=== PATIENT | female | born 1965 | race Caucasian/White ===

== ENCOUNTER 2024-12-27 20:40 | Emergency (ER) | payer BC, SELFPAY ==
[2024-12-27 21:09] VITALS: BP 116/78
[2024-12-27 21:50] LABS: % Basophils 0.5 % (0-2); % Lymphocytes 26.9 % (20.5-51.1); % Monocytes 19.9 % (1.7-9.3); % Neutrophils 50.7 % (42.2-75.2); Absolute Lymphocytes 0.5 10^3/uL (1.2-3.4); Absolute Monocytes 0.4 10^3/uL (0.1-0.6); Hemoglobin 12.2 g/dL (12.0-16.0); Mean Corp Hgb Conc. 33.9 g/dL (33.0-37.0); Mean Corpuscular Hgb 32.2 pg (27.0-31.0); Mean Platelet Volume 10.6 fL (7.4-10.4); Nucleated Red Blood Cells % 0 %; Platelet Count 111 10^3/uL (130-400); Red Blood Cell Count 3.79 10^6/uL (4.20-5.40); Red Cell Dist. Width 12.2 % (11.5-14.5)
[2024-12-27 21:55] LABS: Blood Urea Nitrogen 16 mg/dl (7-17); Calcium 8.9 mg/dl (8.4-10.2); Carbon Dioxide 28 mmol/L (22-30); Chloride 101 mmol/L (98-107); Glucose 102 mg/dl (70-99); Potassium 4.4 mmol/L (3.5-5.1); Sodium 134 mmol/L (135-145); eGFR > 60.00
[2024-12-27 22:55] VITALS: BMI 26.3
--- NOTE | 2024-12-27 23:14 | ED.GENMED ---
History of Present Illness
General
Chief Complaint: Cough
Source: patient and spouse
Exam Limitations: none
Time Seen by Provider: 12/27/24 22:52
Nursing documentation reviewed up to this point in time: agreed with
History of Present Illness
History of Present Illness:
This is a 59-year-old woman who has history of lupus maintained on Plaquenil, low-dose prednisone, baby aspirin. No history of chronic lung disease but has remote history of pneumonia and admits that she was prescribed an albuterol inhaler a number
of years ago for URI.
She complains of URI symptoms that began 1 week ago, tested negative for flu on Sunday, 3 days ago. Was prescribed a Z-Po by her PCP for which she completed day 4 of 5 today. She admits that she was feeling improved, asymptomatic over the past
2 days but then developed chills and aches last night with onset of dry cough and worsening chills with low-grade fever today.
Cough has been harsh, nonproductive and she hears a 'rattling' in her chest.
She and her reside in [place], they are visiting family locally. No known close contacts with similar symptoms.
She did receive an influenza vaccine this season.
Past History
Past History
ED Past Medical History: Psychiatric and Other (Lupus)
ED Past Surgical History: Orthopedic
Social History
Tobacco: Non-smoker
Personal:
Living: with family
Employment: Employed
Family History
Family History: Other (Noncontributory)
Phy Exam
Physical Exam
Physical Exam:
GENERAL: 59-year-old woman appears her stated age, awake and alert, pleasant, appears in no acute distress. Respirations are easy and nonlabored. is accompanying. Oral temperature 100.8 �F
EYE: anicteric
NECK: Supple, nontender, no meningismus, no significant adenopathy.
ENT: Facemask in place.
CARDIAC: Regular rate and rhythm. no murmur.
LUNGS: no acute respiratory distress, coarse expiratory wheezing and rhonchi bilaterally.
ABDOMEN: Soft, nondistended, without focal tenderness, normoactive BS.
NEUROLOGICAL: Alert and oriented x3, no focal neuro deficits. Gait is ybarra and steady.
SKIN: Warm and dry, normal color, skin intact. No rash.
MUSCULOSKELETAL: No C/C/E. peripheral pulses are full and equal b/l. No palpable tenderness.
PSYCH: Normal and appropriate interaction.
Sepsis
Sepsis Screening
Sepsis Assessment: Sepsis Ruled Out
Sepsis Screen
Sepsis Screen: Sepsis Ruled Out
Date: 12/28/24
Time: 00:14
Course
Orders/Labs/Results
Orders:
Orders
12/27/24 21:13
Chest [CR Chest - 2 Views ] Urgent
Comment:
Reason For Exam: COUGH
12/27/24 21:20
Basic Metabolic Panel Urgent
Complete Blood Count/With Diff Urgent
Influenza A+B Rapid Molecular Urgent
CALEB Source: Nasal Swab
Specimen Description:
12/27/24 23:12
Ibuprofen [Motrin] 600 mg PO NOW STA
Ipratropium/Albuterol Sulfate [Duoneb] 3 ml INH R NOW STA
Oseltamivir Phosphate [Tamiflu] 75 mg PO NOW STA
Abnormal Lab Results
12/27/24
21:20
WBC 2.0 L* 10^3/uL
(4.8-10.8)
RBC 3.79 L 10^6/uL
(4.20-5.40)
Hct 36.0 L %
(37.0-47.0)
MCH 32.2 H pg
(27.0-31.0)
Plt Count 111 L 10^3/uL
(130-400)
MPV 10.6 H fL
(7.4-10.4)
Absolute Neuts (auto) 1.0 L 10^3/uL
(1.4-6.5)
Absolute Lymphs (auto) 0.5 L 10^3/uL
(1.2-3.4)
Immature Gran % 1.0 H %
(0-0.5)
Monocytes % 19.9 H %
(1.7-9.3)
Sodium 134 L mmol/L
(135-145)
Glucose 102 H mg/dl
(70-99)
12/27/24 21:20
12/27/24 21:20
Vital Signs
Temp: 100.8 F
Initial and Last Documented VS:
Initial Vital Signs
Temp Pulse Resp BP Pulse Ox
99.1 F 94 22 116/78 94
12/27/24 21:09 12/27/24 21:09 12/27/24 21:09 12/27/24 21:09 12/27/24 21:09
Last Documented Vital Signs
Temp Pulse Resp BP Pulse Ox
100.8 F H 94 22 116/78 94
12/27/24 23:17 12/27/24 21:09 12/27/24 21:09 12/27/24 21:09 12/27/24 21:09
MDM/Problems Addressed
Differential Diagnosis Includes:
Patient presents with 1 week history of URI symptoms that had improved/resolved 2 to 3 days ago with return of fever 24 hours ago and return of cough today.
Influenza A is positive. I suspect influenza is acute in nature.
Lungs with coarse rhonchi and wheezing bilaterally, concern for reactive airway disease/asthmatic bronchitis, concern for viral pneumonitis.
Due to immunocompromise, concern for bacterial pneumonia.
Chest x-ray reassuring, no evidence of infiltrate. Patient currently on a course of Zithromax that was started 4 days ago thus already covered for potential occult bacterial pneumonia.
Labs show leukopenia at 2.0, mild thrombocytopenia at 111. Normal H&H. There is no bruising nor petechiae on exam. Likely related to acute viral illness. Chemistries are unremarkable.
Will initiate Tamiflu, give ibuprofen for fever and will give DuoNeb nebulizer.
Chronic conditions affecting care: Immunosuppressed
*Radiology
Radiology exam reviewed: preliminary read by ED provider (Chest x-ray is unremarkable. No evidence of infiltrate.)
*Pulse Oximetry
Patient hypoxic: no
*Critical Care Note
Total Time (30-74mins, 75-104mins- exclusive of procedures): Not Applicable
Update Note
Update Note:
23:55
Patient feeling improved after nebulizer treatment.
Lungs with marked improvement in air movement, marked improvement in wheezing, rhonchi. Improvement in cough.
Will discharge to home with prescription for Tamiflu as well as albuterol inhaler.
Recommend supportive measures, staying well-hydrated, continuing Tylenol versus ibuprofen as needed for fever, aches.
Prompt follow-up with PCP upon returning home.
ED Attending Note
-
Portions of this chart may have been created with voice recognition software.� Occasional wrong word or��sound alike� substitutions may have occurred due to the inherent limitations of voice recognition software.
Discharge Plan
Departure
Patient Disposition: Home (Routine Discharge)
Date of Disposition: 12/28/24
Time of Disposition: 00:01
Patient with high blood pressure during this ER visit?: No
Condition: Good
Discharge Problem:
Influenza A
Instructions: How to use your metered dose inhaler (adults), Flu in adults - Discharge instructions
Prescriptions:
New
oseltamivir [Tamiflu] 75 mg capsule
75 mg PO BID 5 Days Qty: 10 0RF
albuterol sulfate 90 mcg/actuation aerosol powdr breath activated
2 inh inhalation Q4HPRN PRN (Reason: shortness of breath or wheezing) Qty: 1 0RF
Referrals:
CORONA,RICKIE [Other]
Interventions
Interventions:
*Risk Screen - Suicide Last Done: 12/27/24 21:09
*General Assessment Last Done: 12/27/24 22:55
*Neglect/Abuse Screening Last Done: 12/27/24 21:09
*ED COVID-19 Vaccine History Last Done: 12/27/24 22:55
ED- Pulmonary Assessment Last Done: 12/27/24 22:55
Discharge Date and Time
Print Language: NEPALI
[2024-12-27] MEDS: MOTRIN 600 MG PO (23:27)
[2024-12-27] MEDS: TAMIFLU 75 MG PO (23:27)
[2024-12-27] MEDS: DUONEB 3 ML INH (23:27)
[2024-12-28 00:21] VITALS: BP 101/73
== END 2024-12-28 00:22 | disposition home or self-care (01) ==
LOC: EMR 20:40
PROVIDERS: Emergency Medicine; EMERGENCY PHYSICIAN Emergency Medicine
DX: J10.1 Influenza due to other identified influenza virus with other respiratory manifestations (principal); M32.9 Systemic lupus erythematosus, unspecified; Z79.52 Long term (current) use of systemic steroids; Z87.01 Personal history of pneumonia (recurrent)
CPT/HCPCS: 99283; 94640; 71046; 80048; 85025; 87502